=== PATIENT | male | born 1965 | race Two or more races ===

== ENCOUNTER → 2024-09-10 | Outpatient (CLI) | payer MEDICAID, SELFPAY ==
--- NOTE | 2024-09-10 | XR_ITS ---
EXAMINATION: Ankle, left 3 views . Technique: Ankle AP, oblique, lateral 3 views Date and time of exam: September 10, 2024 1223 hrs. Indications: Left ankle pain beginning 3 months ago. Findings: Moderate osteopenia Moderate narrowing tibiotalar joint 4 mm plantar bony calcaneal spur No fracture Impression: Moderate osteoarthritis tibiotalar joint
== END | disposition home or self-care (01) ==
LOC: CDIM 12:04
PROVIDERS: PCP Nurse Practitioner Family; Referring Provider Nurse Practitioner Family; Visit Provider Nurse Practitioner Family
DX: M19.072 Primary osteoarthritis, left ankle and foot (principal)
CPT/HCPCS: 73610